=== PATIENT | female | born 1955 | race African-American/Black ===

== ENCOUNTER → 2020-02-01 | Outpatient (CLI) | payer OTHER | LOC: RAD 07:37 | PROVIDERS: ATTEND Internal Medicine | DX: C50.412 Malignant neoplasm of upper-outer quadrant of left female breast (principal) | CPT/HCPCS: 82565; 77049; A9576 ==

== ENCOUNTER 2020-03-08 08:28 | Day surgery (SDC) | payer MEDICARE, OTHER ==
[2020-03-03 11:39] LABS: HEMATOCRIT 36.4 % (36.0-47.0); HEMOGLOBIN 11.9 g/dL (12.0-15.5); MEAN CORPUSCULAR HEMOGLOBIN 27.2 pg (27.0-33.4); MEAN CORPUSCULAR HGB CONC 32.7 g/dL (32.0-36.0); MEAN CORPUSCULAR VOLUME 83 fl (80-97); PLATELET COUNT 213 10^3/uL (150-450); RED BLOOD COUNT 4.36 10^6/uL (3.72-5.28); RED CELL DISTRIBUTION WIDTH 15.8 % (11.5-14.0); WHITE BLOOD COUNT 7.4 10^3/uL (4.0-10.5)
[2020-03-03 12:09] LABS: ANION GAP 9 (5-19); BLOOD UREA NITROGEN 14 mg/dL (7-20); CALCIUM 9.7 mg/dL (8.4-10.2); CARBON DIOXIDE 25 mmol/L (22-30); CHLORIDE 107 mmol/L (98-107); GLUCOSE 91 mg/dL (75-110); POTASSIUM 4.8 mmol/L (3.6-5.0)
[~2020-03-08 08:28] MED LIST: CEFAZOLIN 1 GM/D5W RTU 1 GM/50 ML RTUPB IV PRN; LACTATED RINGERS 1000 ML IV PRN; LIDOCAINE 0.5% INJ-PF (5 MG/ML) 50 ML SDV SUBCUT PRN; LIDOCAINE 4% CREAM 5 GM TUBE ONE
[2020-03-08] MEDS ORDERED: HYDROMORPHONE HCL INJ/PF 2 MG/ML AMPULE ONE (10:43)
[2020-03-08] MEDS ORDERED: MIDAZOLAM 2 MG/2 ML INJ ONE (10:43)
[2020-03-08] MEDS ORDERED: PROPOFOL INJ 200 MG/20 ML VIAL IV ONE (10:43)
[2020-03-08] MEDS ORDERED: CEFAZOLIN 1 GM/D5W RTU 1 GM/50 ML RTUPB IV ONE (11:07)
[2020-03-08] MEDS ORDERED: SCOPOLAMINE HYDROBROMIDE 1.5 MG PATCH.TD72 ONE (11:07)
[2020-03-08] MEDS ORDERED: SCOPOLAMINE HYDROBROMIDE 1.5 MG PATCH.TD72 TD ONE (11:15)
--- NOTE | 2020-03-08 12:06 | RADIOLOGY REPORT (SQ) ---
EXAM DESCRIPTION: NM LYMPHATICS/LYMPH GLANDS IMAGES COMPLETED DATE/TIME: 03/08/2020 11:12 am REASON FOR STUDY: BREAST CANCER C50.912 MALIGNANT NEOPLASM OF UNSPECIFIED SITE OF LEFT FEMAL COMPARISON: None. RADIONUCLIDE AND DOSE: 561 microcuries TC-99m tilmanocept - [employer]. The route of agent administration: Subcutaneous in the skin. TECHNIQUE: The skin of the left breast was prepped in sterile fashion. The radiopharmaceutical was administered in equally divided doses in the periareolar breast. LIMITATIONS: None. FINDINGS: Images demonstrate activity at the injection site. IMPRESSION: ADMINISTRATION OF RADIOPHARMACEUTICAL FOR SENTINEL LYMPH NODE EVALUATION. TECHNICAL DOCUMENTATION: JOB ID: [id number] 2010 [email or web address]- All Rights Reserved Reading location - IP/workstation name: [email or web address]
[2020-03-08] MEDS ORDERED: BUPIVACAINE HCL 0.25 % INJ/PF (2.5 MG/1 ML) 30 ML VIAL ONE (12:32)
[2020-03-08] MEDS ORDERED: METHYLENE BLUE 50 MG/10 ML AMPULE ONE (12:32)
[2020-03-08] MEDS ORDERED: LIDOCAINE 1%/EPINEPHRINE INJ 20 ML VIAL ONE (12:32)
[2020-03-08] MEDS ORDERED: ONDANSETRON HCL INJ/PF 4 MG/2 ML SDV IV PRN (13:07)
[2020-03-08] MEDS ORDERED: FENTANYL CITRATE INJ/PF 100 MCG/2 ML AMPUL IV PRN ×3 (13:07)
[2020-03-08] MEDS ORDERED: PROMETHAZINE HCL INJ 25 MG/1 ML VIAL IV PRN ×2 (13:07)
[2020-03-08] MEDS ORDERED: OXYCODONE-ACETAMINOPHEN 5-325 MG TABLET PO PRN ×2 (13:07)
[2020-03-08] MEDS ORDERED: MEPERIDINE HCL/PF INJ 25 MG/1 ML DISP.SYRIN IV PRN (13:07)
[2020-03-08] MEDS ORDERED: DIPHENHYDRAMINE HCL 50 MG/ML VIAL IV PRN (13:07)
[2020-03-08] MEDS ORDERED: LIDOCAINE 2% INJ-PF (20 MG/ML) 2 ML AMPUL ONE (14:39)
[2020-03-08] MEDS ORDERED: NEOSTIGMINE METHYLSULFATE 10 MG/10 ML VIAL ONE (14:39)
[2020-03-08] MEDS ORDERED: GLYCOPYRROLATE 1 MG/5 ML VIAL ONE (14:39)
[2020-03-08] MEDS ORDERED: SUCCINYLCHOLINE CHLORIDE INJ 200 MG/10 ML VIAL ONE (14:39)
[2020-03-08] MEDS ORDERED: ONDANSETRON HCL INJ/PF 4 MG/2 ML SDV ONE (14:39)
[2020-03-08] MEDS ORDERED: METOCLOPRAMIDE HCL INJ/PF 10 MG/2 ML SDV ONE (14:39)
[2020-03-08] MEDS ORDERED: DEXAMETHASONE SOD PHOSPHATE INJ 4 MG/1 ML VIAL ONE (14:39)
--- NOTE | 2020-03-08 14:58 | RADIOLOGY REPORT (SQ) ---
EXAM DESCRIPTION: FLUORO/CV PLACEMENT IMAGES COMPLETED DATE/TIME: 03/08/2020 2:36 pm [facility] STUDY[facility] MALIGNANT NEOPLASM OF UNSPECIFIED SITE OF LEFT FEMAL COMPARISON: None. FLUOROSCOPY TIME: 0.1 minutes Spot images saved to PACS. TECHNIQUE: Intra-operative images acquired during surgical procedure to evaluate progress. NUMBER OF IMAGES: 1 LIMITATIONS: None. FINDINGS: Fluoroscopy was provided for intraoperative procedure. Please refer to the operative repo rt for further discussion. IMPRESSION: IMAGE(S) OBTAINED DURING PROCEDURE. COMMENT: Quality ID [id number]: Final reports for procedures using fluoroscopy that document radiation exp osure indices, or exposure time and number of fluorographic images (if radiation exposure indices are not available) Please consult full operative report of the attending physician for description of the procedure. TECHNICAL DOCUMENTATION: JOB ID: [id number] 2010 [employer]- All Rights Reserved Reading location - IP/workstation name: [email or web address]
--- NOTE | 2020-03-08 15:09 | Operative Report ---
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 Focused ultrasound of the right neck. 2. Placement of right subclavian Fayfnv-o-Xcub catheter into the right internal jugular vein. 3. Interpretation of intraoperative fluoroscopy. 4. Ultrasound directed left breast lumpectomy with excision of superior cavity margin. 5. Dual mapping sentinel lymph node biopsy x3 left axilla SURGEON: JONES MELISSA 1ST DIRECTOR OF MEDICAL STAFF SERVICES: ROSALINA GUTIÉRREZ ANESTHESIA: GA TISSUE REMOVED OR ALTERED: 1. Left breast lumpectomy. 2. Cavity margin excision. 3. 3 sentinel lymph nodes COMPLICATIONS: None ESTIMATED BLOOD LOSS: 10 cc INTRAOPERATIVE FINDINGS: See below PROCEDURE: The patient was seen in the preop holding area after undergoing lymphoscintigraphy of the left breast. Bedside neoprobe scanning revealed an area of increased uptake in the left axilla. Comparison with the lympho- scintigram suggested uptake either in the tail of Rock target tumor and or left axillary lymph nodes given the close proximity of the tumor to the low axilla. The patient was taken to the operating room general anesthesia was induced. Arms were tucked in the supine position right neck and chest wall prepped and draped sterile fashion. The first portion of the operation consisted of the port placement. Surgical plan and surgical timeout were conducted. We approached the right internal jugular vein. The neck was scanned with a variable frequency linear transducer, vein identified, skin anesthetized 1% plain lidocaine. Micro needle and wire threaded into the right internal jugular vein without difficulty. A suitable site for placement of a single-chamber port was chosen in the right subclavian position. Skin was anesthetized, a 2 and half centimeter incision was made with a #15 blade, and a pocket developed large enough to accommodate a dual-chamber port was developed. The catheter was then trimmed to the appropriate length, 25 cm, tunnel between the 2 incisions, attached to the port with the plastic ring. The port was tucked into the right subclavian pocket. Under real-time fluoroscopic guidance, the microwire was switched over to a conventional guidewire 0.030 inches. The 9.5 Danish dilator and introducer were threaded over the guidewire under fluoroscopic guidance, wire and dilator removed, and free catheter fragment threaded into the strip away sheath. The sheath was removed, leaving the catheter. The chamber was aspirated and flushed with dilute heparinized saline. Wounds closed with 3-0 Vicryl suture at the neck and the subclavian position. We broke scrub, abducted the left arm, exposed the left breast. The left breast at the 2 o'clock position intradermally was injected with 2 and half cc of methylene blue with a 25-gauge needle. Left breast was massaged, then the left breast and axilla were prepped and draped sterile fashion. A second timeout was conducted. Using ultrasound as a guide, the tumor in the tail of Pranav with clip marker was identified. Skin was anesthetized over the low axilla, and the entire operation approached through a single excision. An Approximately 6 cm ellipse of skin was removed in a transverse fashion with #10 blade. The attached underlying subcutaneous tissue and breast tissue was excised as a single lump using ultrasound as a guide. The tumor was in the deep recesses of the lump of tissue. On the back table the specimen was labeled with a short suture in the superior position long suture in the lateral position. On the back table I placed the neoprobe on the lumpectomy specimen it was hot suggesting the specimen may have a retained sentinel lymph node versus physiologic uptake of radionuclide by the tumor. This was discussed with Dr. Meléndez. The specimen was imaged with the portable x-ray machine in the operating room and found to contain the clip and the tumor. The lumpectomy specimen was then taken to the pathology lab where it was examined by Dr. Meléndez. She felt that the deep anterior side of the lumpectomy specimen adjacent to the tumor was close, likely negative for malignancy, but suggested an additional cavity wall resection. Dr. Melissa scrubbed back in, and shaved a additional portion of fatty tissue from the anterior and deep side of the lumpectomy cavity and removed it from the patient, and oriented with a short suture in the superior position, long suture in the lateral position. This was sent for permanent analysis as margin cavity wall. The sentinel lymph node portion of the biopsy was now performed. 3 sentinel lymph nodes were harvested, all blue, all hot, and from the low axilla. The first sentinel lymph node, hot and blue had an in vivo count of 26,117. The second hot blue lymph node had an in vivo count of 2152 and ex vivo count of 1004 and 85. The third hot blue sentinel lymph node had an in vivo count of 1866. Background counts were negligible. We felt the operation was complete. The wound cavity irrigated with saline multiple times, and check for bleeders and there were none. Sponge and needle counts are correct. A large Chase drain was placed to the inferior skin flap, secured to the skin with 2-0 Prolene suture. The wound was closed with 2-0 and 3-0 Vicryl suture, Dermabond glue. Patient tolerated the procedure well, extubated, taken to recovery in stable condition. The physician administrative personal assistant, Ms. Ramírez, provided assistance during this case by: Assisting with retracting tissue, instillation of local anesthesia and closure of skin incisions.
--- NOTE | 2020-03-08 15:12 | Discharge Summary ---
Discharge Summary (SDC) - Discharge Final Diagnosis: Triple negative invasive ductal carcinoma left breast Date of Surgery: 03/08/20 Discharge Date: 03/08/20 Condition: Good Treatment or Instructions: Instruct patient on drainage and recording of bulb output; follow-up with Dr. Melissa at [facility] in 1 to 2 weeks. Encourage range of motion the left arm. Patient may shower and change external drain dressing. Patient may take Tylenol, Motrin or prescribed Toradol Referrals: KEY CYR MD [Primary Care Provider] - Discharge Diet: As Tolerated Discharge Activity: Activity As Tolerated Home Care Assistance: None Needed Report the Following to Your Physician Immediately: Shortness of Breath, Increase in Pain, Fever over 101 Degrees
[2020-03-08] MEDS ORDERED: OXYCODONE-ACETAMINOPHEN 5-325 MG TABLET ONE (15:41)
[2020-03-08] MEDS ORDERED: PROMETHAZINE HCL INJ 25 MG/1 ML VIAL ONE (15:50)
[2020-03-08 17:18] VITALS: BP 151/88
--- NOTE | 2020-03-14 19:09 | RADIOLOGY REPORT (SQ) ---
EXAM DESCRIPTION: BREAST SPECIMEN IMAGES COMPLETED DATE/TIME: 03/08/2020 2:36 pm REASON FOR STUDY: BREAST SPECIMEN C50.912 MALIGNANT NEOPLASM OF UNSPECIFIED SITE OF LEFT FEMAL COMPARISON: None. TECHNIQUE: Specimen radiograph from breast procedure performed in the operating room. LIMITATIONS: None. FINDINGS: Specimen radiograph from breast procedure performed in the operating room. Please see procedure note for details and final pathology. IMPRESSION: Specimen radiograph. TECHNICAL DOCUMENTATION: JOB ID: [id number] Reading location - IP/workstation name: [email or web address]
== END 2020-03-08 17:15 | disposition home or self-care (01) ==
LOC: OROUT 08:28
PROVIDERS: ATTEND Surgery
DX: C50.412 Malignant neoplasm of upper-outer quadrant of left female breast (principal); J45.909 Unspecified asthma, uncomplicated; F32.9 Major depressive disorder, single episode, unspecified; J32.9 Chronic sinusitis, unspecified; Z79.899 Other long term (current) drug therapy; Z03.818 Encounter for observation for suspected exposure to other biological agents ruled out
CPT/HCPCS: 36561; 19301; 38500; 36415; 85027; 80048; 88342 ×2; 88341 ×2; 88305 ×2; 88307 ×2; 77001; 78195; 01610; 76098; C1788; C1752; U0003; A9520; J2250; J0690; J1100; J3490 ×4; J2765; J2710; J1170; J2550; J0330; J2405; J2704; J1642; Q9968; C9803; 1610; 87635

== ENCOUNTER 2020-04-16 20:13 | Emergency (ER) | payer OTHER ==
[2020-04-16] MEDS ORDERED: CEFEPIME 2 GM/D5W RTU 2 GM/50 ML RTUPB IV ONE (20:22)
--- NOTE | 2020-04-16 20:26 | ER Document Report ---
ED Medical Screen (RME) - General Chief Complaint: Fever Stated Complaint: FEVER CHEMO PT Time Seen by Provider: 04/16/20 20:14 Primary Care Provider: KEY CYR MD [Primary Care Provider] - Follow up as needed Mode of Arrival: Ambulatory Information source: Patient Notes: 64-year-old female presented to ED for fever 4 days post chemo. She states that she got chemo on Friday Dr. Sepulveda on Friday developed a fever on Friday of 100.4. She states she called her oncologist and he told her to take Tylenol and ibuprofen every 6 hours. She states she called him today and he sent her to the emergency room. Dr. Ledbetter did call and orders to get blood cultures 1 from the port 1 peripheral urine urine culture CBC chemistry chest x-ray and normal blood work. He did wanted to be started on cefepime and then be examined. I have ordered the orders I have spoken with the nurse we have started her work- up. She will be seen by another provider. Does have stage I breast cancer to the left breast with lumpectomy and also has a history of asthma. She states she does not know of any allergies. She states she last had Tylenol at 5 PM and Motrin at 11 AM. She states the Tylenol was 1000 mg and the Motrin was 400 mg. Will order her another 400 mg of ibuprofen now. I have greeted and performed a rapid initial assessment of this patient. A comprehensive ED assessment and evaluation of the patient, analysis of test results and completion of medical decision making process will be conducted by an additional ED providers. - Related Data Allergies/Adverse Reactions: COMBID Allergy (Uncoded 03/08/20 11:20) Past Medical History - Past Medical History Cardiac Medical History: Denies: Hx Coronary Artery Disease, Hx Heart Attack, Hx Hypertension Pulmonary Medical History: Reports: Hx Asthma Denies: Hx Bronchitis, Hx COPD, Hx Pneumonia Neurological Medical History: Denies: Hx Cerebrovascular Accident, Hx Seizures Musculoskeltal Medical History: Denies Hx Arthritis Psychiatric Medical History: Reports: Hx Anxiety Past Surgical History: Reports: Hx Section, Hx Hysterectomy - Partial - Immunizations Hx Diphtheria, Pertussis, Tetanus Vaccination: Yes Doctor's Discharge - Discharge Referrals: KEY CYR MD [Primary Care Provider] - Follow up as needed
--- NOTE | 2020-04-16 21:07 | RADIOLOGY REPORT (SQ) ---
EXAM DESCRIPTION: [facility]: XR CHEST 2 VIEWS Views: 2 CLINICAL HISTORY: 64 years Female; Post chemo fever possible port infection; COMPARISON: 11/27/2013 FINDINGS: Lungs: Lungs are clear, with no focal infiltrate, pneumothorax, or pleural effusion. Mediastinum: Right IJ port is in place, tip in the right atrium. No mediastinal widening or shift. Heart size is normal. Bones: Bony structures are unremarkable. IMPRESSION: 1. No acute cardiothoracic abnormality. 2. Right IJ port
[2020-04-16 21:44] LABS: ALKALINE PHOSPHATASE 100 U/L (38-126); ANION GAP 9 (5-19); ASPARTATE AMINO TRANSFERASE 25 U/L (14-36); BILIRUBIN,DIRECT 0.2 mg/dL (0.0-0.4); BILIRUBIN,TOTAL 0.2 mg/dL (0.2-1.3); BLOOD UREA NITROGEN 9 mg/dL (7-20); CALCIUM 9.7 mg/dL (8.4-10.2); CARBON DIOXIDE 25 mmol/L (22-30); CHLORIDE 108 mmol/L (98-107); GLUCOSE 106 mg/dL (75-110); POTASSIUM 4.2 mmol/L (3.6-5.0)
[2020-04-16 21:58] LABS: HEMATOCRIT 33.7 % (36.0-47.0); HEMOGLOBIN 11.1 g/dL (12.0-15.5); MEAN CORPUSCULAR HEMOGLOBIN 27.6 pg (27.0-33.4); MEAN CORPUSCULAR HGB CONC 32.9 g/dL (32.0-36.0); MEAN CORPUSCULAR VOLUME 84 fl (80-97); PLATELET COUNT 166 10^3/uL (150-450); RED BLOOD COUNT 4.01 10^6/uL (3.72-5.28); RED CELL DISTRIBUTION WIDTH 14.5 % (11.5-14.0); WHITE BLOOD COUNT 7.6 10^3/uL (4.0-10.5)
--- NOTE | 2020-04-16 22:06 | ER Document Report ---
ED Fever - General Chief Complaint: Fever Stated Complaint: FEVER CHEMO PT Time Seen by Provider: 04/16/20 20:14 Primary Care Provider: MICHELLE THOMAS MD [ACTIVE STAFF] - 04/17/20 Mode of Arrival: Ambulatory Notes: Patient is a 64-year-old female who comes emergency department for chief com plaint of fever, chills, and diarrhea. Patient has a history of breast cancer and just started chemotherapy with her first dose 4 days ago. She states that Friday night she had a temperature of 100.4, she contacted her oncologist and she was told to take Tylenol and ibuprofen. She states she felt feverish and had a temperature of 100.5 this evening, she states because this has been multiple days she was recommended to come to the emergency department for testing and evaluation. Dr. Thomas, her oncologist, did call per triage provider and gave instructions/requests for testing and requested initiation of cefepime. Patient reportedly has stage I breast cancer and has had a lumpectomy in the left breast. Patient has a history of asthma, has had a partial hysterectomy, no other medical history reported. Patient denies any sick contacts, recent travel, or COVID-19 testing. She denies any other symptoms including developing headache, sore throat, chest pain, shortness breath, cough, abdominal pain, chest pain. She states that she did have diarrhea for several episodes but she has taken Imodium and now her diarrhea has resolved. She denies recent antibiotics. - Related Data Allergies/Adverse Reactions: COMBID Allergy (Uncoded 03/08/20 11:20) Past Medical History - General Information source: Patient - Social History Smoking Status: Never Smoker Frequency of alcohol use: None Drug Abuse: None Lives with: Family Family History: Reviewed & Not Pertinent - Past Medical History Cardiac Medical History: Denies: Hx Coronary Artery Disease, Hx Heart Attack, Hx Hypertension Pulmonary Medical History: Reports: Hx Asthma Denies: Hx Bronchitis, Hx COPD, Hx Pneumonia Neurological Medical History: Denies: Hx Cerebrovascular Accident, Hx Seizures Musculoskeletal Medical History: Denies Hx Arthritis Psychiatric Medical History: Reports: Hx Anxiety Past Surgical History: Reports: Hx Section, Hx Hysterectomy - Partial - Immunizations Hx Diphtheria, Pertussis, Tetanus Vaccination: Yes Review of Systems - Review of Systems Constitutional: See HPI EENT: No symptoms reported Cardiovascular: No symptoms reported Respiratory: No symptoms reported Gastrointestinal: See HPI Genitourinary: No symptoms reported Female Genitourinary: No symptoms reported Musculoskeletal: No symptoms reported Skin: No symptoms reported Hematologic/Lymphatic: No symptoms reported Neurological/Psychological: No symptoms reported Physical Exam - Vital signs Vitals: Resp Pulse Ox 12 99 04/16/20 20:20 04/16/20 20:20 - Notes Notes: GENERAL: Alert, interacts well. No acute distress. Smiling, talkative, well- appearing, energetic HEAD: Normocephalic, atraumatic. EYES: Pupils equal, round, and reactive to light. Extraocular movements intact. ENT: Oral mucosa moist, tongue midline. Oropharynx unremarkable. Airway patent. NECK: Full range of motion. Supple. Trachea midline. No lymphadenopathy. LUNGS: Clear to auscultation bilaterally, no wheezes, rales, or rhonchi. No respiratory distress. Non-tender chest wall. There is a subclavian port present in the right chest without surrounding erythema, tenderness, swelling, or other concerning findings. HEART: Regular rate and rhythm. No murmur ABDOMEN: Soft, non-tender. Non-distended. EXTREMITIES: Moves all 4 extremities spontaneously. No edema, normal radial and dorsalis pedis pulses bilaterally. No cyanosis. BACK: no cervical, thoracic, lumbar midline tenderness. No saddle anesthesia, normal distal neurovascular exam. Moves all extremities in full range of motion. NEUROLOGICAL: Alert and oriented x3. Normal speech. Cranial nerves II through XII grossly intact. Strength 5/5 in all extremities. PSYCH: Normal affect, normal mood. SKIN: Warm, dry, normal turgor. No rashes or lesions noted. Course - Re-evaluation Re-evalutation: Patient is actually very well-appearing, talkative, alert, energetic. The port that she had placed recently does not appear to be externally infected, we did obtain cultures from this and peripheral sites. Chest x-ray unremarkable, CBC nonspecific without neutropenia (ANC is normal), chemistry nonspecific, ESR and CRP are only mildly elevated. Lactic acid is normal. Patient is not febrile here. Vital signs here are unremarkable. Urinalysis obtained and shows infection. Culture was placed. Patient has already been given cefepime IV. I called and spoke with Dr. Thomas, patient's oncologist. Updated him on the evaluation and work-up of the patient. He recommends that patient be discharged on Levaquin with close oncology follow-up. Discussed the details of the work-up and plan with the patient, she states appreciation and agreement. Discussed return precautions. Stable and well-appearing at time of discharge. - Vital Signs Vital signs: Temp Pulse Resp BP Pulse Ox 98.8 F 87 13 131/78 H 99 04/16/20 20:25 04/16/20 20:25 04/16/20 23:01 04/16/20 23:01 04/16/20 23:00 - Laboratory Result Diagrams: 04/16/20 21:00 04/16/20 21:00 Laboratory results interpreted by me: 04/16/20 04/16/20 04/16/20 21:00 21:00 21:50 Hgb 11.1 L Hct 33.7 L RDW 14.5 H Seg Neuts % (Manual) 38 L Metamyelocytes % 2 H Myelocytes % 2 H Promyelocytes % 1 H ESR 45 H Chloride 108 H C-Reactive Protein 18.0 H Ur Leukocyte Esterase LARGE H Discharge - Discharge Clinical Impression: Chills Fever Qualifiers: Fever type: unspecified Qualified Code(s): R50.9 - Fever, unspecified Urinary tract infection Qualifiers: Urinary tract infection type: site unspecified Hematuria presence: without hematuria Qualified Code(s): N39.0 - Urinary tract infection, site not specified Condition: Stable Disposition: HOME, SELF-CARE Additional Instructions: Your work-up indicates a urinary tract infection. We have cultures pending for blood and urine. I spoke with Dr. Thomas, your oncologist, please take the antibiotic as pres cribed to completion, follow-up closely with them for additional evaluation and management. Return if you worsen including developing abdominal pain, back pain, vomiting, worsening spiking fevers, passing out, or any other concerning or worsening symptoms. Prescriptions: Levofloxacin [Levaquin 750 mg Tablet] 750 mg PO DAILY 5 Days #5 tablet Referrals: MICHELLE THOMAS MD [ACTIVE STAFF] - 04/17/20
[2020-04-16 22:15] LABS: BASOPHILS % (MANUAL) 0 % (0-2); EOSINOPHILS % (MANUAL) 0 % (0-6); LYMPHOCYTES % (MANUAL) 40 % (13-45)
[2020-04-16 22:16] LABS: ERYTHROCYTE SEDIMENTATION RATE 45 mm/hr (0-30)
[2020-04-16 22:19] LABS: BAND NEUTROPHILS % (MANUAL) 4 % (3-5); METAMYELOCYTES % (MANUAL) 2 % (0-1); MONOCYTES % (MANUAL) 13 % (3-13); MYELOCYTES % (MANUAL) 2 % (0); PROMYELOCYTES % (MANUAL) 1 % (0); SEGMENTED NEUTROPHILS % (MAN) 38 % (42-78); TOTAL CELLS COUNTED 100
[2020-04-16 22:22] LABS: ANISOCYTOSIS SLIGHT; PLATELET COMMENT ADEQUATE; TOXIC GRANULATION 1+
[2020-04-16 22:25] LABS: APPEARANCE,URINE SLIGHTLY-CLOUDY; BILIRUBIN,URINE NEGATIVE (NEGATIVE); COLOR,URINE YELLOW; GLUCOSE, URINE NEGATIVE (NEGATIVE); KETONES,URINE NEGATIVE (NEGATIVE); LEUKOCYTE ESTERASE,URINE LARGE (NEGATIVE); NITRITE,URINE NEGATIVE (NEGATIVE); PROTEIN,URINE NEGATIVE (NEGATIVE); URINE SPECIFIC GRAVITY 1.024; UROBILINOGEN,URINE NEGATIVE mg/dL (<2.0)
[2020-04-17 01:35] VITALS: BP 131/78
[2020-04-17 14:05] LABS: PATH REVIEW PATHOLOGIST REVIEWED
== END 2020-04-17 01:39 | disposition home or self-care (01) ==
LOC: ER 20:13
DX: N39.0 Urinary tract infection, site not specified (principal); R50.9 Fever, unspecified; C50.919 Malignant neoplasm of unspecified site of unspecified female breast; J45.909 Unspecified asthma, uncomplicated; Z88.8 Allergy status to other drugs, medicaments and biological substances
CPT/HCPCS: 36591; 99284; 96365; 36415; 87040; 87086; 85025; 85652; 86140; 80053; 81001; 71046; J0692; J1642